=== PATIENT | female | born 1975 | race Caucasian/White ===

== ENCOUNTER → 2021-01-26 10:29 | Outpatient (CLI) | payer OTHER, SELFPAY ==
--- NOTE | ~2021-01-26 | US_ITS ---
EXAMINATION: US abdomen complete EXAM DATE: 01/26/2021 11:24 INDICATION: Unspecified abdominal pain . TECHNIQUE: Multiple grayscale and Doppler images of the complete abdomen were obtained (by a technolo gist who performed the scan) and subsequently reviewed. There is no prior study for comparison. FINDINGS: The abdominal aorta is normal in caliber. Visualized portion IVC is patent. The pancreatic head a nd body are normal in appearance. The pancreatic tail is not visualized. The liver has normal echogenicity and contour. There are no focal liver lesions identified. There is no evidence of intrahepatic biliary duct dilation. Portal venous flow was seen in the hepatopedal , normal direction and has normal Doppler waveform. Common bile duct measures 3 mm, which is normal. The gallbladder wall is normal in thickness, with ex pected amount of distention. No sonographic evidence of pericholecystic fluid. There is cholelithia sis. Technologist performing exam reports patient did not demonstrate sonographic Cheng's sign. P caridad note that this sign is less reliable in patients who have received pain medication. Right kidney: There is normal contour and echogenicity. It measures 11.1 x 4.1 x 5.1 centimeters. There are no focal renal lesions identified. There is no hydronephrosis. Left kidney: There is normal contour and echogenicity. It measures 12.4 x 4.3 x 4.5 centimeters. T here are no focal renal lesions identified. There is no hydronephrosis. The spleen measures 10.4 centimeters and is morphologically normal. IMPRESSION: 1. Cholelithiasis. Reviewed, dictated and finalized at location A. [facility] IMPRESSION: 1. Cholelithiasis.
== END ==
PROVIDERS: PCP Internal Medicine; Visit Provider Physician Assistant Medical
DX: R10.9 Unspecified abdominal pain (principal); K80.20 Calculus of gallbladder without cholecystitis without obstruction
CPT/HCPCS: 76700

== ENCOUNTER 2021-02-25 10:13 | Outpatient (CLI) | payer OTHER, SELFPAY ==
--- NOTE | 2021-02-25 10:30 | ECG_ITS ---
Measurements Intervals [place] Rate: 72 P: 38 GA: 148 QRS: -9 QRSD: 90 T: 25 QT: 347 QTc: 380 Interpretive Statements SINUS RHYTHM VOLTAGE CRITERIA FOR LVH BORDERLINE R WAVE PROGRESSION, ANTERIOR LEADS MINIMAL Q WAVES- HIGH LATERAL LEADS BASELINE ARTIFACT- I, III, AVL, AVF BORDERLINE ECG Electronically Signed On 02-25-2021 16:53:54 TRANSLATOR AND INTERPRETER by Kenny Romero D.O.
[2021-02-25 10:49] LABS: Anion Gap 10 mmol/L (8-16); Blood Urea Nitrogen 8 mg/dL (7-17); Calcium 9.5 mg/dL (8.4-10.2); Carbon Dioxide 24 mmol/L (22-30); Chloride 105 mmol/L (98-107); Estimated Glomerular Filt Rate 60; Glucose 125 mg/dL (65-110); Potassium 3.6 mmol/L (3.4-5.0); Sodium 139 mmol/L (137-145)
[2021-02-25 10:50] LABS: Alanine Aminotransferase 28 U/L (4-35); Albumin Level 4.4 g/dL (3.5-5.1); Alkaline Phosphatase 65 U/L (38-126); Amylase 74 U/L (30-110); Aspartate Amino Transferase 23 U/L (14-36); Bilirubin,Total 0.6 mg/dL (0.2-1.3); Lipase 114 U/L (23-300)
== END 2021-02-25 10:14 | disposition home or self-care (01) ==
PROVIDERS: Anesthesiology; PCP Internal Medicine; Visit Provider Surgery
DX: K80.10 Calculus of gallbladder with chronic cholecystitis without obstruction (principal); I10 Essential (primary) hypertension; Z79.899 Other long term (current) drug therapy; Z01.818 Encounter for other preprocedural examination; R94.31 Abnormal electrocardiogram [ECG] [EKG]
CPT/HCPCS: 36415; 80048; 80076; 82150; 83690; 86850; 86900; 86901; 93005

== ENCOUNTER 2021-06-20 07:59 | Inpatient (IN) | payer OTHER, SELFPAY ==
--- NOTE | ~2021-06-20 | MR_ITS ---
EXAMINATION: MR MRCP wo/w con/w 3D wo ind DATE: 06/21/2021 12:19 INDICATION: Abnormal liver function tests. Pancreatitis. TECHNIQUE: Magnetic resonance imaging (MRI) of the abdomen was performed without intravenous contrast . Sequences included coronal T2-weighted FS FSE, coronal T2-weighted FSE, axial T1-weighted LAVA, cor onal FS FIESTA, axial dual-echo T1-weighted SPGR, coronal lava-FLEX, sagittal T2-weighted FSE, axial T2-weighted FSE, and axial DWI. Thick-slab T2-weighted FSE images were obtained for magnetic resonanc e cholangiopancreatography (MRCP). Maximum intensity projection 3-D reconstructions of the volumetric data were created by the technologist. Postcontrast sequences included coronal LAVA-flex and time co urse of axial T1-weighted LAVA. COMPARISON: CT abdomen and pelvis 06/20/2021 FINDINGS: ABDOMEN MRI: The liver is normal. The gallbladder is normal in size and contains gallstones. Gallblad ruth wall thickening is noted. There is edema around the pancreas, consistent with acute interstitial pancreatitis. The spleen, adrenal glands, and kidneys are normal. There are no dilated loops of bowel . There are no pathologically enlarged lymph nodes. There is no free intraperitoneal fluid. ABDOMEN MRCP: The common duct is normal in caliber and measures 6 mm. No choledocholithiasis. IMPRESSION: 1. Cholelithiasis. Gallbladder wall thickening may be from interstitial edema. 2. No choledocholithiasis. 3. Acute interstitial pancreatitis. Reviewed, dictated and finalized at location B.
--- NOTE | ~2021-06-20 | CT_ITS ---
EXAMINATION: CT abdomen pelvis w con DATE: 06/20/2021 10:25 INDICATION: Right abdominal pain. Nausea. TECHNIQUE: Computed tomography (CT) of the abdomen and pelvis was performed with 100 mL Omnipaque 350 intravenous contrast. Automated exposure control and iterative reconstruction technique were employe d. The dose-length product was 1210.21 mGy-cm. COMPARISON: CT abdomen and pelvis 10/22/2015 FINDINGS: The visualized portions of the lung bases demonstrated mild atelectasis. No pleural effusio n. The heart size is normal. No pericardial effusion. The liver is normal. The gallbladder is normal in size. The spleen is normal. There is fat stranding around the pancreas, consistent with acute inte rstitial pancreatitis. The adrenal glands and kidneys are normal. There is diverticulosis of the colo n without evidence of diverticulitis. There are no dilated loops of bowel. The appendix is normal. Th ere are no pathologically enlarged lymph nodes. There is no free intraperitoneal fluid. There is mild thoracolumbar spondylosis. IMPRESSION: 1. Acute interstitial pericarditis. Reviewed, dictated and finalized at location A.
[2021-06-20 08:02] VITALS: BP 127/83; PULSE 65; RESP 18; TEMP 36.5; O2SAT 100
[2021-06-20 08:25] LABS: Basophils Percent Auto 0.3 % (0.2-1.2); Eosinophils Percent Auto 0.1 % (0-4.4); Hematocrit 40.2 % (37.0-47.0); Hemoglobin 13.9 g/dL (12.0-15.0); Immature Granulocyte Absolute 0.03 K/mm3 (0.00-0.031); Immature Granulocyte Percent A 0.4 % (0-0.5); Lymphocytes Absolute Auto 1.07 K/mm3 (0.9-3.2); Lymphocytes Percent Auto 13.4 % (18.3-44.2); Mean Corpuscular HGB Conc 34.6 g/dl (32-36); Mean Corpuscular Hemoglobin 33.5 pg (26-34); Mean Corpuscular Volume 96.9 fl (80-100); Mean Platelet Volume 9.8 fl (7.4-10.4); Monocytes Absolute Auto 0.6 K/mm3 (0.1-0.6); Monocytes Percent Auto 7.5 % (2.6-8.5); Neutrophils Absolute Auto 6.2 K/mm3 (1.3-6.7); Neutrophils Percent Auto 78.3 % (45.5-73.1); Platelet Count Result 239 k/mm3 (150-375); Red Blood Count 4.15 M/mm3 (4.2-5.4); Red Cell Distribution Width 11.9 % (11.5-14.5)
--- NOTE | 2021-06-20 08:33 | ED.ABDPAIN ---
HPI - Abdominal Pain General Chief Complaint: Abdominal Pain Stated Complaint: abdominal pain Time Seen by Provider: 06/20/21 08:33 Source: patient and family Mode of arrival: ambulatory Limitations: no limitations History of Present Illness HPI narrative: Patient is 46 years old white female, history of gallbladder pathology with intermittent right upper quadrant pain associated with nausea. Scheduled for surgery by Dr. Carolina in 5 days. The pain started last night at 11 PM, 10 out of 10, associated with nausea. Denies any fever. Radiating to right scapula Related Data Home Medications Medication Instructions Recorded Confirmed cholecalciferol (vitamin D3) 125 mcg PO DAILY 02/24/21 06/16/21 [Vitamin D3] dicyclomine [Bentyl] 20 mg PO QID 02/24/21 06/16/21 esomeprazole magnesium [Nexium] 20 mg PO BID 02/24/21 06/16/21 losartan-hydrochlorothiazide 1 tablet PO DAILY 02/24/21 06/16/21 multivitamin 1 tablet PO DAILY 02/24/21 06/16/21 Allergies Allergy/AdvReac Type Severity Reaction Status Date / Time EGG WHITE Allergy Intermediate HAY FEVER Uncoded 06/20/21 08:10 SYMPTOMS ACTAFED Allergy Unknown Other Uncoded 06/20/21 08:10 Review of Systems Review of Systems: CONSTITUTIONAL: Denies fever, chills, or sweats. EYES: Denies visual changes, redness, or discharge. ENT: Denies rhinorrhea, congestion, sore throat, or otalgia. CARDIOVASCULAR: Denies chest pain, palpitations, or edema. RESPIRATORY: Denies cough or dyspnea. GASTROINTESTINAL: Denies abdominal pain, nausea, vomiting, or diarrhea. GENITOURINARY: Denies dysuria or hematuria. SKIN: Denies rash or itching. MUSCULOSKELETAL: Denies back pain, joint pain, or myalgia. NEUROLOGIC: Denies headache, numbness, or weakness. PSYCHIATRIC: Denies anxiety or depression. [facility] Past Medical History Medical History Anxiety Gallbladder disorder GERD (gastroesophageal reflux disease) Hypertension PVC's (premature ventricular contractions) Surgical History Surgical History H/O rhinoplasty Family History Family History Mother Family history of thyroid disease Grandparent Family history of cardiovascular disease Family history of lung cancer Family history of malignant neoplasm of uterus Other Diabetes mellitus Family history of arthritis Family history of heart disease in male family member before age 55 Family history of malignant neoplasm Hypertension Social History Social History Smoking status: Never smoker Alcohol intake: former Alcohol use details: 1 year ago Substance use: never Substance use type: does not use Spiritual care concerns: No Exam Narrative: General appearance: Well-developed, well-nourished Skin: Normal color Head: Normocephalic, nontraumatic Eyes: Clear conjunctiva ENT: Oropharynx normal, ears normal, nose normal Neck: Supple, nontender Chest and respiratory: Airway patent, no respiratory distress, no accessory muscle use Heart: Regular rate/rhythm Abdomen: Soft, mild to moderate tenderness right upper quadrant, no organomegaly, quiet bowel sounds Vascular: Normal peripheral pulses, normal capillary refill. Musculoskeletal: Normal range of motion, nontender back Neurologic: Alert and oriented ?3, [employer] is normal as tested, no gross motor deficit Course Course Emergency Course: Stable, improving Consultations Consultation #1: Dr. Aragon Date: 06/20/21 Time: 11:12 Vital Signs Vital signs: Vital Signs Temperature 36.5 C
[2021-06-20 08:44] LABS: Alanine Aminotransferase 87 U/L (4-35); Albumin Level 4.2 g/dL (3.5-5.1); Alkaline Phosphatase 104 U/L (38-126); Anion Gap 7 mmol/L (8-16); Aspartate Amino Transferase 374 U/L (14-36); Bilirubin,Total 1.9 mg/dL (0.2-1.3); Blood Urea Nitrogen 9 mg/dL (7-17); Calcium 8.9 mg/dL (8.4-10.2); Carbon Dioxide 26 mmol/L (22-30); Chloride 103 mmol/L (98-107); Estimated CRCL calculation 86 ml/min; Estimated Glomerular Filt Rate > 60; Glucose 120 mg/dL (65-110); Sodium 136 mmol/L (137-145)
[2021-06-20] MEDS: SODIUM CHLORIDE 0.9% IV 1,000 ML 999 ML IV CONT ×2 (08:57→10:02)
[2021-06-20] MEDS: MORPHINE SULFATE (*CRX) 4 MG/ML INJ IV PUSH (08:58)
[2021-06-20] MEDS: ONDANSETRON INJ 4 MG/2 ML VIAL IV PUSH ×2 (08:58→18:32)
--- NOTE | 2021-06-20 08:58 | PC.NURSE ---
pt unable to provide urine sample at this time.
[2021-06-20 09:32] LABS: Lipase 38587 U/L (23-300)
[2021-06-20 10:04] VITALS: BP 120/81; PULSE 67; RESP 17; O2SAT 100
[2021-06-20 10:16] LABS: Appearance Urine Cloudy (Clear); Bilirubin Urine Negative (Negative); Blood Urine Trace-lysed (Negative); Color Urine Yellow (Yellow); Glucose Urine UA Negative (Negative); Ketones Urine Negative (Negative); Leukocyte Esterase Ur 2+ LEU/UL (Negative); Nitrate Urine Negative (Negative); Protein Urine Negative (Negative); Specific Grav Ur 1.015 (1.001-1.035); pH Urine 7.5 (5.0-9.0)
[2021-06-20 10:19] LABS: Add Urine Microscopic? YES
[2021-06-20 10:22] LABS: Bacteria Urine Trace /hpf; Mucus Urine Rare /lpf; Squamous Epithelial Cell Urine Many /hpf (Few); WBC Urine >75 /hpf
[2021-06-20 12:04] VITALS: BP 126/82; PULSE 74; RESP 16; O2SAT 100
--- NOTE | 2021-06-20 13:28 | PC.NURSE ---
report received from Monisha AWAN, reviewed plan of care
[2021-06-20 13:30] VITALS: BP 128/78; PULSE 78; RESP 16; O2SAT 99
--- NOTE | 2021-06-20 13:46 | ADMGEN ---
This patient, Radha Rush, was admitted to Medical Room 341-01. Patient/family oriented to hospital policies and general routines including ID bracelet, bed and alarms, visiting hours, pain management, procedures, bathroom and other care routines, personal items, smoking policy, room service/diet, and visiting hours. Information on how to activate the Rapid Response Team has been discussed. Patient/Family are encouraged to report perceived risks to care and to ask questions if they do not understand what they are told or what they should do.
[2021-06-20] MEDS: LACTATED RINGERS 1,000 ML 150 ML IV CONT ×2 (14:03→22:35)
--- NOTE | 2021-06-20 15:47 | PM.IMHP ---
H&P: HPI History of Present Illness Date/Time: 06/20/21 15:47 this is a 46-year-old female that presented to our emergency department with complaints generalized abdominal pain. Patient has a past medical history anxiety, gallbladder disorder GERD hypertension and PVCs. According to patient she have an appointment with GI on for diagnostic testing gallbladder. Patient notes that she started to experience generalized abdominal pain last night at 11:00 a.m. per patient she just assumed it was her gallbladder. She also notes that she experienced nausea with her abdominal pain. She notes that she took Tylenol and Bentyl for her pain with no relief. Vital signs 128/78, 78, 16, 99% on room air, PVCs 8.0, hemoglobin 13.9, hematocrit 40.2, platelets 236, sodium 136, potassium 4.0, BUN 9, creatinine 0.70, glucose 120, total bili 0.9, AST 374, ALT 87, lipase 75470, UA positive for blood, leukocyte Estrace, and bacteria. CT of the abdomen indicates acute pancreatitis EKG sinus rhythm with a heart rate of 72. Patient being admitted for pancreatitis Dr. Aragon surgeon consulted. Patient continues to abdominal pain with nausea. Denies any shortness of breath, diarrhea, dizziness, lightheadedness, palpitations, or chest pain, Chief Complaint: Abdominal pain with nausea Review of Systems Review of Systems: All systems reviewed & are unremarkable except as noted in HPI and below PMFSH Past Medical History Medical History Anxiety Gallbladder disorder GERD (gastroesophageal reflux disease) Hypertension PVC's (premature ventricular contractions) Surgical History Surgical History H/O rhinoplasty Family History Family History Mother Family history of thyroid disease Grandparent Family history of cardiovascular disease Family history of lung cancer Family history of malignant neoplasm of uterus Other Diabetes mellitus Family history of arthritis Family history of heart disease in male family member before age 55 Family history of malignant neoplasm Hypertension Social History Social History Smoking status: Never smoker Alcohol intake: never Alcohol use details: 1 year ago Substance use: never Substance use type: does not use Spiritual care concerns: No Meds Home Medications and Allergies Home Medications Medication Instructions Recorded Confirmed Type cholecalciferol (vitamin D3) 125 mcg PO DAILY 02/24/21 06/20/21 History [Vitamin D3] dicyclomine [Bentyl] 20 mg PO QID 02/24/21 06/20/21 History esomeprazole magnesium [Nexium] 20 mg PO BID 02/24/21 06/20/21 History losartan-hydrochlorothiazide 1 tablet PO DAILY 02/24/21 06/20/21 History multivitamin 1 tablet PO DAILY 02/24/21 06/20/21 History Allergies Allergy/AdvReac Type Severity Reaction Status Date / Time EGG WHITE Allergy Intermediate HAY FEVER Uncoded 06/20/21 13:53 SYMPTOMS ACTAFED Allergy Unknown Other Uncoded 06/20/21 13:53 Vital Signs Vital Signs - 24 hr 06/20/21 08:02 06/20/21 10:04 06/20/21 12:04 Temperature 97.7 F Pulse Rate 65 67 74 Respiratory Rate 18 17 16 Blood Pressure 127/83 120/81 126/82 Pulse Oximetry 100 100 100 06/20/21 13:30 Temperature Pulse Rate 78 Respiratory Rate 16 Blood Pressure 128/78 Pulse Oximetry 99 Exam Narrative: General: Pleasant, no obvious distress noted obese HEENT: PERRLA, Mucous Membranes Moist and [place], Nares Patent, Sclera Clear Neck: JVD, Supple Pulmonary: Clear to Auscultation, Normal Air Movement Cardiovascular: No Murmurs, Gallops, or Rubs, Regular Rhythm, Regular Rate Abdominal: Abdomen Soft, Non-Distended, Normal Bowel Sounds abdominal tenderness to the lower quads and left upper quad Extremities: Normal Pulses Integumentary: No Abnormalities
[2021-06-20 16:00] VITALS: BP 126/75; PULSE 69; RESP 18; TEMP 38.1; O2SAT 100
[2021-06-20] MEDS: PANTOPRAZOLE SODIUM IV 40 MG VIAL IV PUSH (16:25)
--- NOTE | 2021-06-20 17:22 | PM.CNGS ---
Assessment and Plan Assessment and plan (1) Acute pancreatitis: Onset Date: ~06/19/21 Qualifiers: Acute pancreatitis complication: unspecified Pancreatitis type: unspecified pancreatitis type Qualified Code(s): K85.90 - Acute pancreatitis without necrosis or infection, unspecified Code(s): K85.90 - Acute pancreatitis without necrosis or infection, unspecified Status: Acute Assessment and Plan: The patient's lipase is significantly elevated and there is stranding on her pancreas by CT. Will proceed with bowel rest, fluid rehydration, and repeat labs tomorrow. Will ask Medicine to hold any medication containing hydrochlorothiazide which is another possibility for stimulation of the pancreas as a drug side effect. Will also tomorrow morning check a lipid profile since elevated lipids can contribute to pancreatitis separate from gallstones. If her bilirubin goes up rather than down may need to consider MRCP tomorrow to rule out choledocholithiasis. (2) BMI 39.0-39.9,adult: Onset Date: Unknown Code(s): Z68.39 - Body mass index [BMI] 39.0-39.9, adult Status: Acute Assessment and Plan: Patient states she has been following low-fat diet that we recommended when she found out she had gallstones. She has lost a small amount of weight since February and during 2020 lost about 40 lb. Encouraged her to continue the low-fat diet even after this event and her surgical intervention. (3) Chronic cholecystitis with calculus: Onset Date: ~02/2021 Code(s): K80.10 - Calculus of gallbladder with chronic cholecystitis without obstruction Status: Acute Assessment and Plan: Patient has known that she has had gallstones since February of last year. She was actually scheduled electively to have a laparoscopic cholecystectomy this coming with Dr. Carolina. For now we will await and see how she her pancreas behaves as we try to settle it. Will also check MRCP if her bilirubin goes up rather than comes down. History of Present Illness Consult details Consult date: 06/20/21 Reason for consult: abdominal pain ( pancreatitis with gallstones) Requesting physician: Steh Aragon, [employer] Narrative: The patient is a is a 46-year-old white, obese female that presented to the [facility] emergency department with complaints generalized abdominal pain. she is well known to our office and that she has seen Dr. Carolina in the past for known gallstones. She was seen in February here at the hospital and then as an outpatient and elective surgical intervention is planned for later this week. Patient has a past medical history anxiety, gallbladder disorder, GERD, hypertension, and PVCs. She has had no previous abdominal surgeries Patient notes that she started to experience generalized abdominal pain last night (06/19) at 11:00 a.m. per patient she just assumed it was her gallbladder. She states that she had grilled chicken, salad and 1 pastry with some butter on it. She also notes that she experienced nausea with her abdominal pain. She notes that she took Tylenol and Bentyl for her pain with no relief. She knows that since February when she was last seen by our office she has had for 5 similar episodes but they would lasted only 20-60 minutes and then resolve. In the ED Vital signs 128/78, 78, 16,and her glucose [id number], total bili 1.9, AST 374, ALT 87, lipase 25039, UA positive for blood, leukocyte Estrace, and bacteria. CT of the abdomen indicates acute pancreatitis no mention of common bile duct dilation noted. EKG sinus rhythm with a heart rate of 72. Patient being admitted for pancreatitis. Patient continues to abdominal pain with some nausea. Denies any shortness of breath, diarrhea, dizziness, lightheadedness, palpitations, or chest pain. Review of Systems Review of Systems: All systems reviewed & are unremarkable except as noted in HPI and below (HPI) Constitut
[2021-06-20] MEDS: HYDROmorphone HCL INJ (*CRX) 1 MG/ML SYR 0.5 MG IV PUSH (18:15)
[2021-06-20 20:39] VITALS: BP 120/78; PULSE 63; RESP 16; TEMP 36.6; O2SAT 96
[2021-06-20 20:42] VITALS: BMI 39.9
[2021-06-21] MEDS: LACTATED RINGERS 1,000 ML 150 ML IV CONT ×3 (05:12→20:50)
[2021-06-21 06:00] LABS: Basophils Percent Auto 0.3 % (0.2-1.2); Eosinophils Absolute Auto 0.1 K/mm3 (0-0.3); Eosinophils Percent Auto 1.3 % (0-4.4); Hematocrit 35.5 % (37.0-47.0); Hemoglobin 12.2 g/dL (12.0-15.0); Immature Granulocyte Absolute 0.02 K/mm3 (0.00-0.031); Immature Granulocyte Percent A 0.3 % (0-0.5); Lymphocytes Absolute Auto 1.63 K/mm3 (0.9-3.2); Mean Corpuscular HGB Conc 34.4 g/dl (32-36); Mean Corpuscular Hemoglobin 33.7 pg (26-34); Mean Corpuscular Volume 98.1 fl (80-100); Mean Platelet Volume 10.4 fl (7.4-10.4); Monocytes Absolute Auto 0.6 K/mm3 (0.1-0.6); Monocytes Percent Auto 10.1 % (2.6-8.5); Neutrophils Absolute Auto 3.9 K/mm3 (1.3-6.7); Platelet Count Result 198 k/mm3 (150-375); Red Blood Count 3.62 M/mm3 (4.2-5.4); Red Cell Distribution Width 12.1 % (11.5-14.5); White Blood Count 6.3 K/mm3 (4.5-10.0)
[2021-06-21 06:17] VITALS: BP 112/76; PULSE 81; RESP 16; TEMP 36.2; O2SAT 99
[2021-06-21 06:19] LABS: Alanine Aminotransferase 81 U/L (4-35); Alkaline Phosphatase 109 U/L (38-126); Anion Gap 5 mmol/L (8-16); Aspartate Amino Transferase 178 U/L (14-36); Bilirubin,Total 3.4 mg/dL (0.2-1.3); Blood Urea Nitrogen 7 mg/dL (7-17); Calcium 8.2 mg/dL (8.4-10.2); Carbon Dioxide 24 mmol/L (22-30); Chloride 110 mmol/L (98-107); Cholesterol 136 mg/dL (0-200); Estimated CRCL calculation 79 ml/min; Estimated Glomerular Filt Rate > 60; Glucose 92 mg/dL (65-110); HDL Direct 25 mg/dL; Potassium 3.7 mmol/L (3.4-5.0); Sodium 139 mmol/L (137-145); Triglycerides 104 mg/dL (<150)
[2021-06-21 06:24] LABS: LDL Cholesterol Direct 86 mg/dL
[2021-06-21 06:51] LABS: Lipase 5526 U/L (23-300)
[2021-06-21] MEDS: PANTOPRAZOLE SODIUM IV 40 MG VIAL IV PUSH ×2 (08:42→21:43)
[2021-06-21 10:22] VITALS: BP 106/68; PULSE 68; RESP 18; TEMP 36.7; O2SAT 100
[2021-06-21 12:00] VITALS: BMI 39.9
[2021-06-21] MEDS: metroNIDAZOLE 500 MG/ISO 100ML 500 MG/100 ML BAG 100 MG IVPB (12:24)
[2021-06-21 12:51] VITALS: BP 115/76; PULSE 67; RESP 18; TEMP 36.7; O2SAT 100
--- NOTE | 2021-06-21 15:05 | PM.PNGS ---
Progress Note: A&P Assessment and Plan (1) Acute pancreatitis: Onset Date: ~06/19/21 Qualifiers: Acute pancreatitis complication: unspecified Pancreatitis type: unspecified pancreatitis type Qualified Code(s): K85.90 - Acute pancreatitis without necrosis or infection, unspecified Code(s): K85.90 - Acute pancreatitis without necrosis or infection, unspecified Status: Acute Assessment and Plan: Clinically improving. Lipase down to 5,526 today. Lipid profile normal. Would still recommend to continue holding any HCTZ containing medication as a possible etiology for her pancreatitis. Total bilirubin up to 3.4 today. MRCP ordered and showed acute pancreatitis, cholelithiasis, but NO choledocholithiasis. Will repeat labs again tomorrow. Will allow her to try clear liquids today. We will decipher planning of her cholecystectomy depending on how she progresses with the pancreatitis. (2) Chronic cholecystitis with calculus: Onset Date: ~02/2021 Code(s): K80.10 - Calculus of gallbladder with chronic cholecystitis without obstruction Status: Acute Assessment and Plan: Patient with gallstones that she has known about since February last year. She was scheduled to have a laparoscopic cholecystectomy electively this coming with Dr. Carolina. See plan above. (3) BMI 39.0-39.9,adult: Onset Date: Unknown Code(s): Z68.39 - Body mass index [BMI] 39.0-39.9, adult Status: Acute Additional Plan I have discussed the patient's case and plan of care with Dr. Aragon. Requested the patient try to void and asked the nurse to record output. If patient unable to void, I asked the nurse to bladder scan her and call the Hospitalist. Subjective Subjective Date/Time Seen: 06/21/21 15:05 Patient reports: feels better, flatus, no bowel movement and afebrile Interval history: This is a 46 yo female who presented with acute pancreatitis on CT with an associated elevated lipase. This was felt to be biliary. She has been NPO and treated for the pancreatitis. Her total bilirubin went up today and an MRCP was ordered. Chart reviewed and patient was seen and examined this afternoon after her MRCP. She reports feeling well today. She denies any abdominal pain, nausea, vomiting, or bloating. She reports dark urine this morning and not urinating since earlier this morning, she estimates urinating around 6-8am this morning. She felt she emptied her bladder well but does not feel like she needs to void now and hasn't since this morning. Her nurse reports emptying 500 cc of urine from her urine hat in the bathroom this morning. Review of Systems Review of Systems: All systems reviewed & are unremarkable except as noted in HPI and below Constitutional: Constitutional: Denies fever(s) Exam Const: General: no acute distress and awake Orientation/consciousness: patient oriented x3 GI: Inspection: non-distended and obesity GI Palp: Yes Soft to palpation, Yes Tenderness to palpation present (GI) (very mild tenderness, reportedly sore in the epigastric and LUQ, improved), No Guarding due to palpation present (GI) and No Rebound tenderness present Auscultation: normal bowel sounds Skin: General skin exam: normal color and no jaundice Neuro: General: moves all extremities and no focal motor deficits Psych: Insight: Good insight present (Psych) Judgement: Good judgement present (Psych) Objective Data Vital Signs Vital Signs: Vital Signs - 24 hr 06/20/21 16:00 06/20/21 20:39 06/21/21 06:17 Temperature 100.6 F H 98 F 97.2 F L Pulse Rate 69 63 81 Respiratory Rate 18 16 16 Blood Pressure 126/75 120/78 112/76 Pulse Oximetry 100 96 99 06/21/21 10:22 06/21/21 12:51 Temperature 98.0 F 98.0 F Pulse Rate 68 67 Respiratory Rate 18 18 Blood Pressure 106/68 115/76 Pulse Oximetry 100 100 Intake/Output Intake/Output: Intake & Output 06/18/21 06/19/21 06/20/21 06/21/21 23:59 23:59 23
--- NOTE | 2021-06-21 15:59 | PM.IMPN ---
Progress Note: A&P Assessment and Plan (1) Acute pancreatitis: Onset Date: ~06/19/21 Qualifiers: Acute pancreatitis complication: unspecified Pancreatitis type: unspecified pancreatitis type Qualified Code(s): K85.90 - Acute pancreatitis without necrosis or infection, unspecified Code(s): K85.90 - Acute pancreatitis without necrosis or infection, unspecified Status: Acute (2) Chronic cholecystitis with calculus: Onset Date: ~02/2021 Code(s): K80.10 - Calculus of gallbladder with chronic cholecystitis without obstruction Status: Acute (3) Elevated liver enzymes: Code(s): R74.8 - Abnormal levels of other serum enzymes Status: Acute Additional Plan 46-year-old female that presented to our emergency department with complaints generalized abdominal pain. Found to have acute pancreatitis (1) Acute pancreatitis: Improving pain, trending down lipase Appreciate Surgery help Started on clear liquid diet (2) Chronic cholecystitis with calculus: Appreciate surgery help As per surgery We will decipher planning of her cholecystectomy depending on how she progresses with the pancreatitis. (3) UTI: Urine culture negative Stop Abx (4)DVT ppx: Hep SQ (5)Code:Full (6)Dispo:pending improvement Time Spent With Patient Time with patient: 15 - 25 minutes Subjective Date/time seen: 06/21/21 15:59 no abdominal pain at the moment Review of Systems Review of Systems: All systems reviewed & are unremarkable except as noted in HPI and below Constitutional: Constitutional: Reports no additional constitutional complaints Eyes: Eyes: Reports no additional eye complaints ENT: Reports system reviewed and no additional complaints, except as documented Cardiovascular: Cardiovascular: Reports no additional cardiovascular complaints Respiratory: Respiratory: Reports no additional respiratory complaints Gastrointestinal: Gastrointestinal: Reports no additional gastrointestinal complaints Musculoskeletal: Musculoskeletal: Reports no additional musculoskeletal complaints Integumentary/Breasts: Skin/Breast: Reports system reviewed and no additional complaints, except as docu Neurologic: Reports system reviewed and no additional complaints, except as documented Exam Const: General: comfortable and no acute distress HENMT: Mouth: Yes moist mucous membranes Eyes: Pupils: Equal, round and reactive pupils present Neck: Neck: supple Resp: Auscultation: clear to auscultation bilaterally Cardio: Rate: regular rate Rhythm: regular rhythm GI: GI Palp: Yes Soft to palpation Auscultation: normal bowel sounds Neuro: Cognition (Neuro): normal cognition Psych: Mental Status: mental status grossly normal Objective Data Vital Signs Vital Signs: Vital Signs - 24 hr 06/20/21 16:00 06/20/21 20:39 06/21/21 06:17 Temperature 100.6 F H 98 F 97.2 F L Pulse Rate 69 63 81 Respiratory Rate 18 16 16 Blood Pressure 126/75 120/78 112/76 Pulse Oximetry 100 96 99 06/21/21 10:22 06/21/21 12:51 Temperature 98.0 F 98.0 F Pulse Rate 68 67 Respiratory Rate 18 18 Blood Pressure 106/68 115/76 Pulse Oximetry 100 100 Intake/Output Intake/Output: Intake & Output 06/18/21 06/19/21 06/20/21 06/21/21 23:59 23:59 23:59 23:59 Intake Total 3150 2100 Output Total 600 1550 Balance 2550 550 Meds/Results Medications: Active Medications Generic Name Dose Route Start Last Admin Trade Name Freq PRN Reason Stop Dose Admin Hydromorphone HCl 1 mg 06/20/21 12:45 Hydromorphone Hcl Inj (*Crx) 1 Mg/Ml Syr IV PUSH Q3H PRN Pain Rated 7-10 Hydromorphone HCl 0.5 mg 06/20/21 12:44 06/20/21 18:15 Hydromorphone Hcl Inj (*Crx) 1 Mg/Ml Syr IV PUSH 0.5 mg Q3H PRN Administration Pain Rated 4-6 Lactated Ringer's 1,000 mls @ 150 mls/hr 06/20/21 11:10 06/21/21 12:29 Lr - Lactated Ringers Iv IV CONT 150 mls/hr .Q6H40M [place] Administration
[2021-06-21 16:00] VITALS: BP 120/71; PULSE 78; RESP 18; TEMP 36.6; O2SAT 100
[2021-06-21 20:00] VITALS: BP 126/59; PULSE 84; RESP 18; TEMP 37.4; O2SAT 100
[2021-06-21] MEDS: HEPARIN SODIUM 5,000 UNITS/ML VIAL 5000 UNITS SUB-Q (21:42)
[2021-06-22] VITALS (15 sets, daily range): BP systolic 114–141; BP diastolic 63–91; PULSE 57–94; RESP 12–118; TEMP 36.3–37.1; O2SAT 93–100
[2021-06-22] MEDS: LACTATED RINGERS 1,000 ML 150 ML IV CONT (03:29)
[2021-06-22 05:53] LABS: Basophils Percent Auto 0.5 % (0.2-1.2); Eosinophils Absolute Auto 0.2 K/mm3 (0-0.3); Eosinophils Percent Auto 2.8 % (0-4.4); Hematocrit 34.9 % (37.0-47.0); Hemoglobin 11.6 g/dL (12.0-15.0); Immature Granulocyte Absolute 0.02 K/mm3 (0.00-0.031); Immature Granulocyte Percent A 0.3 % (0-0.5); Mean Corpuscular HGB Conc 33.2 g/dl (32-36); Mean Corpuscular Hemoglobin 33.4 pg (26-34); Mean Corpuscular Volume 100.6 fl (80-100); Monocytes Absolute Auto 0.4 K/mm3 (0.1-0.6); Monocytes Percent Auto 7.1 % (2.6-8.5); Neutrophils Absolute Auto 3.2 K/mm3 (1.3-6.7); Neutrophils Percent Auto 56.3 % (45.5-73.1); Platelet Count Result 180 k/mm3 (150-375); Red Blood Count 3.47 M/mm3 (4.2-5.4); White Blood Count 5.8 K/mm3 (4.5-10.0)
[2021-06-22 06:03] LABS: Alanine Aminotransferase 54 U/L (4-35); Albumin Level 3.2 g/dL (3.5-5.1); Alkaline Phosphatase 100 U/L (38-126); Anion Gap 2 mmol/L (8-16); Aspartate Amino Transferase 63 U/L (14-36); Blood Urea Nitrogen 7 mg/dL (7-17); Calcium 8.4 mg/dL (8.4-10.2); Carbon Dioxide 26 mmol/L (22-30); Chloride 108 mmol/L (98-107); Estimated CRCL calculation 89 ml/min; Estimated Glomerular Filt Rate > 60; Glucose 93 mg/dL (65-110); Lipase 722 U/L (23-300); Sodium 136 mmol/L (137-145)
[2021-06-22] MEDS: PANTOPRAZOLE SODIUM IV 40 MG VIAL IV PUSH ×2 (08:24→20:54)
[2021-06-22] MEDS: ALPRAZolam (*CRX) 0.125 MG TABLET PO (10:36)
[2021-06-22] MEDS: LACTATED RINGERS 1,000 ML 30 ML IV CONT ×2 (12:10→15:05)
[2021-06-22] MEDS: ACETAMINOPHEN 500 MG TABLET 1000 MG PO (12:20)
--- NOTE | 2021-06-22 12:21 | PM.IMPN ---
Progress Note: A&P Assessment and Plan (1) Acute pancreatitis: Onset Date: ~06/19/21 Qualifiers: Acute pancreatitis complication: unspecified Pancreatitis type: unspecified pancreatitis type Qualified Code(s): K85.90 - Acute pancreatitis without necrosis or infection, unspecified Code(s): K85.90 - Acute pancreatitis without necrosis or infection, unspecified Status: Acute Assessment and Plan: Gallstones noted but no stone noted in the common bile duct. Plan to perform cholecystectomy. Currently pain is controlled. (2) Chronic cholecystitis with calculus: Onset Date: ~02/2021 Code(s): K80.10 - Calculus of gallbladder with chronic cholecystitis without obstruction Status: Acute Assessment and Plan: Plan laparoscopic cholecystectomy (3) Elevated liver enzymes: Code(s): R74.8 - Abnormal levels of other serum enzymes Status: Acute Assessment and Plan: Monitor labs Additional Plan Likely no urinary tract infection. Patient otherwise is not having symptoms and cultures were negative. No antibiotics needed at this time. Subjective Date/time seen: 06/22/21 12:21 Feeling better, pain control. No urinary symptoms noted. Exam Narrative: General: Pleasant, no obvious distress noted obese HEENT: PERRLA, Mucous Membranes Moist and [place], Nares Patent, Sclera Clear Neck: JVD, Supple Pulmonary: Clear to Auscultation, Normal Air Movement Cardiovascular: No Murmurs, Gallops, or Rubs, Regular Rhythm, Regular Rate Abdominal: Abdomen Soft, Non-Distended, Normal Bowel Sounds abdominal tenderness to the lower quads and left upper quad Extremities: Normal Pulses Integumentary: No Abnormalities Neurological: Normal Gait, Normal Speech Psychological: Mental Status NL, Mood NL Const: General: comfortable and no acute distress HENMT: Mouth: Yes moist mucous membranes Eyes: Pupils: Equal, round and reactive pupils present Neck: Neck: supple Resp: Auscultation: clear to auscultation bilaterally Cardio: Rate: regular rate Rhythm: regular rhythm GI: Auscultation: normal bowel sounds Neuro: Cranial nerves: Yes Equal, round and reactive pupils present Cognition (Neuro): normal cognition Psych: Mental Status: mental status grossly normal Objective Data Vital Signs Vital Signs: Vital Signs - 24 hr 06/21/21 12:51 06/21/21 16:00 06/21/21 20:00 Temperature 98.0 F 97.9 F 99.3 F Pulse Rate 67 78 84 Respiratory Rate 18 18 18 Blood Pressure 115/76 120/71 126/59 L Pulse Oximetry 100 100 100 06/22/21 06:12 Temperature 98.7 F Pulse Rate 80 Respiratory Rate 16 Blood Pressure 141/69 H Pulse Oximetry 98 Intake/Output Intake/Output: Intake & Output 06/19/21 06/20/21 06/21/21 06/22/21 23:59 23:59 23:59 23:59 Intake Total 3150 3460 1200 Output Total 600 3150 550 Balance 2550 310 650 Meds/Results Medications: Active Medications Generic Name Dose Route Start Last Admin Trade Name Freq PRN Reason Stop Dose Admin Heparin Sodium (Porcine) 5,000 units 06/21/21 21:00 06/22/21 08:25 Heparin Sodium 5,000 Units/Ml Vial SUB-Q Not Given Q12HR [place] Hydromorphone HCl 1 mg 06/20/21 12:45 Hydromorphone Hcl Inj (*Crx) 1 Mg/Ml Syr IV PUSH Q3H PRN Pain Rated 7-10 Hydromorphone HCl 0.5 mg 06/20/21 12:44 06/20/21 18:15 Hydromorphone Hcl Inj (*Crx) 1 Mg/Ml Syr IV PUSH 0.5 mg Q3H PRN Administration Pain Rated 4-6 Lactated Ringer's 1,000 mls @ 150 mls/hr 06/20/21 11:10 06/22/21 04:29 Lr - Lactated Ringers Iv IV CONT Not Given .Q6H40M [place] Ondansetron HCl 4 mg 06/20/21 11:06 06/20/21 18:32 Ondansetron Inj 4 Mg/2 Ml Vial IV PUSH 4 mg Q4H PRN Administration Nausea Pantoprazole Sodium 40 mg 06/20/21 21:00 06/22/21 08:24 Pantoprazole Sodium Iv 40 Mg Vial IV PUSH 40 mg Q12HR [place] Administration Radiology Results: ITS Impressions Abdomen/Pelvis CT
--- NOTE | 2021-06-22 12:37 | WPDHPUPDATE1 ---
History and Physical Update Update Date/Time: 06/22/21 12:37 History and Physical has been reviewed, including an updated exam of the patient. There are changes in the patient's condition. See recent progress notes. The patient's lipase today is down to less than 1000 but still slightly elevated. MRCP yesterday showed no common bile duct stones and no acute inflammation of the gallbladder. Patient has known chronic cholecystitis with cholelithiasis and wishes to proceed with a laparoscopic cholecystectomy. Risks, benefits, and alternatives have been discussed and questions answered. Patient agrees to proceed with procedure.
--- NOTE | 2021-06-22 12:38 | WPDANESEPPF ---
Anes - Initial Pre Proc Eval Procedure: Operation Date: 06/22/21 13:30 Proposed Procedures p Laparoscopic Cholecystectomy; Possible Open - Humberto Aragon MD Date/Time: 06/22/21 12:38 Surgeon: Hanna Nash MD Pre Op Diagnosis: Acute pancreatitis Patient Data Age: 46 Gender: F Height: 1.52 m Weight: 92.8 kg Last Vital Signs Temp 37.1 C 06/22/21 06:12 Pulse 80 06/22/21 06:12 Resp 16 06/22/21 06:12 BP 141/69 H 06/22/21 06:12 Pulse Ox 98 06/22/21 06:12 Allergies Allergy/AdvReac Type Severity Reaction Status Date / Time EGG WHITE Allergy Intermediate HAY FEVER Uncoded 06/22/21 12:15 SYMPTOMS ACTAFED Allergy Unknown Other Uncoded 06/22/21 12:15 Home Medications Medication Instructions Recorded Confirmed Type cholecalciferol (vitamin D3) 125 mcg PO DAILY 02/24/21 06/20/21 History [Vitamin D3] dicyclomine [Bentyl] 20 mg PO QID 02/24/21 06/20/21 History esomeprazole magnesium [Nexium] 20 mg PO BID 02/24/21 06/20/21 History losartan-hydrochlorothiazide 1 tablet PO DAILY 02/24/21 06/20/21 History multivitamin 1 tablet PO DAILY 02/24/21 06/20/21 History Laboratory Tests 06/22/21 06/22/21 05:44 05:44 WBC 5.8 K/mm3 K/mm3 (4.5-10.0) RBC 3.47 M/mm3 L M/mm3 (4.2-5.4) Hgb 11.6 g/dL L g/dL (12.0-15.0) Hct 34.9 % L % (37.0-47.0) MCV 100.6 fl H fl (80-100) MCH 33.4 pg pg (26-34) MCHC 33.2 g/dl g/dl (32-36) RDW 12.0 % % (11.5-14.5) Plt Count 180 k/mm3 k/mm3 (150-375) MPV 10.0 fl fl (7.4-10.4) Immature Gran % (Auto) 0.3 % % (0-0.5) Neut % (Auto) 56.3 % % (45.5-73.1) Lymph % (Auto) 33.0 % % (18.3-44.2) [place] % (Auto) 7.1 % % (2.6-8.5) Eos % (Auto) 2.8 % % (0-4.4) Baso % (Auto) 0.5 % % (0.2-1.2) Lymph # (Auto) 1.90 K/mm3 K/mm3 (0.9-3.2) [place] # (Auto) 0.4 K/mm3 K/mm3 (0.1-0.6) Eos # (Auto) 0.2 K/mm3 K/mm3 (0-0.3) Baso # (Auto) 0.0 K/mm3 K/mm3 (0.0-0.1) Abs Immat Gran (auto) 0.02 K/mm3 K/mm3 (0.00-0.031) Absolute Neuts (auto) 3.2 K/mm3 K/mm3 (1.3-6.7) Absolute Nucleated RBC 0.0 K/mm3 K/mm3 (0.0-0.012) Nucleated RBC % 0.0 % % (0.0-0.2) Sodium 136 mmol/L L mmol/L (137-145) Potassium 4.0 mmol/L mmol/L (3.4-5.0) Chloride 108 mmol/L H mmol/L (98-107) Carbon Dioxide 26 mmol/L mmol/L (22-30) Anion Gap 2 mmol/L L mmol/L (8-16) BUN 7 mg/dL mg/dL (7-17) Creatinine 0.70 mg/dL mg/dL (0.7-1.0) Estim Creat Clear Calc 89 ml/min ml/min Estimated GFR > 60 (59 - ) Glucose 93 mg/dL mg/dL (65-110) Calcium 8.4 mg/dL mg/dL (8.4-10.2) Total Bilirubin 1.0 mg/dL mg/dL (0.2-1.3) AST 63 U/L H U/L (14-36) ALT 54 U/L H U/L (4-35) Alkaline Phosphatase 100 U/L U/L (38-126) Total Protein 6.0 g/dL L g/dL (6.3-8.2) Albumin 3.2 g/dL L g/dL (3.5-5.1) Lipase 722 U/L H U/L (23-300) Patient hx anesthesia problems: post op nausea/vomiting Family hx anesthesia problems: none Results Review: All pre-operative results and documents have been reviewed as part of the pre-operative evaluation. [facility] Past Medical History Medical History Anxiety Gallbladder disorder GERD (gastroesophageal reflux disease) Hypertension PVC's (premature ventricular contractions) Surgical History Surgical History H/O rhinoplasty Family History Family History Mother Family history of thyroid disease Grandparent Family history of cardiovascular disease Family history of lung cancer Family history of malignant neoplasm of uterus Other Diabetes mellitus Family history of arthritis Family histo
[2021-06-22] MEDS: KETOROLAC 15 MG/ML VIAL (*BKC) IV PUSH (12:55)
[2021-06-22] MEDS: ceFAZolin 2 GM/D5W 50 ML 2 GM/50 ML BAG IVPB (13:05)
[2021-06-22] MEDS: SCOPOLAMINE 1.5 MG PATCH TRANSDERM (13:05)
--- NOTE | 2021-06-22 15:14 | W.PM.PROC2 ---
Procedure Note - Detailed Date of Procedure 06/22/21 Pre-op Diagnosis 1. Chronic cholecystitis with cholelithiasis. 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 She has known gallstones and so this was the most likely cause. Today her lipase was down below 1000. And the patient's pain was resolving. MRCP yesterday showed no stones in the common bile duct therefore, we proceeded with laparoscopic cholecystectomy today. Findings Some edema of the wall of the gallbladder near the cystic duct and during or in its lower half. No other specific intra-abdominal abnormalities. Description of Procedure Procedure Details: Patient was seen preoperatively in the holding area and risks, benefits and alternatives confirmed. Patient was taken to the operating room and general anesthesia was induced. A time out was then preformed with the surgery team confirming patient and site of surgery. The abdomen was prepped and draped in the usual sterile fashion. Incision was made just below the umbilicus. Two stay sutures of O- Vicryl were used to elevate the mid-line fascia beneath the umbilicus and a small incision was made under direct vision. Further careful dissection was required with the S retractors and I believe we entered the abdomen slightly to the right of midline through the posterior rectus sheath. Once we could see some omentum bulging up through the incision I was able to gently dilate the incision and then inserted the sign cannula. We used a long (130 mm) Bruno cannula for this procedure. The peritoneum was entered. The 12 mm Bruno cannula was introduced under direct vision. First under low flow and then under high flow the abdomen was insufflated with carbon dioxide never exceeding a pressure of 14. Three 5 mm trocars were then introduced under direct vision. The following trocars were introduced under direct vision: a mm in the epigastrium and two 5 mm trocars along the right costal margin. There were no significant adhesions to the gallbladder The gall bladder was grasped and the cystic duct and artery were dissected free and I carefully identified a window of safety with only two other structures in the area being the cystic duct and the cystic artery. I then used a 5 mm endo-clip rug inspector to place 2 clips on the patient's side 1 on the gallbladder side on the cystic artery and just 1 clip on the gallbladder side of the cystic duct. A small hole was made in the cystic duct with endoshears and a cholagio-cath introduced. This was held in place with a single 5 mm clip. A cholangiogram was obtained revealing free flow into the cystic duct, common bile duct, common hepatic, right and left hepatic ducts with free flow into the duodenum with no filling defects in the intra nor extrahepatic biliary tree and no dilation. The catheter was removed and the cystic duct was clipped with a 5 mm endoclip-rug inspector placing 2 clips on the patient's side of the cystic duct. The cystic duct was then transected. The cystic artery was also transected at this point. The gall bladder was removed using electrocautery and then removed using a large 10 mm grasper via the umbilical incision. Because the deep nature of the patient's abdominal wall and the difficulty we had entering the abdomen in the use of the long assigned cannula I decided to use the Toi cone and a 1. Vicryl placed with a suture Passer to close the fascia at the umbilicus. This was accomplished by watching with a 5 mm laparoscoped from the upper midline port site. Patient did well with this. The trocars were removed visualizing hemostasis and the remaining gas evacuated. The large trocar site at the umbilicus was closed with . The 2 stay sutures mentioned above on either side of the fa
[2021-06-22] MEDS: fentaNYL CITRATE INJ (*CRX) 100 MCG/2 ML VIAL 25 MCG IV PUSH ×4 (15:31→16:04)
[2021-06-22] MEDS: HYDROmorphone HCL INJ (*CRX) 1 MG/ML SYR IV PUSH (17:56)
[2021-06-22] MEDS: diphenhydrAMINE HCl INJ 50 MG/ML VIAL 25 MG IV PUSH (18:03)
[2021-06-22] MEDS: HEPARIN SODIUM 5,000 UNITS/ML VIAL 5000 UNITS SUB-Q (20:54)
[2021-06-22] MEDS: SENNA/DOCUSATE SODIUM TABLET 2 TAB PO (20:54)
[2021-06-22] MEDS: HYDROcodone/acetaminophen (*CRX) 5-325 MG TABLET 1 TAB PO (22:28)
[2021-06-23] VITALS: BP 115/75; PULSE 56; RESP 16; TEMP 37.1; O2SAT 96
[2021-06-23] MEDS: HYDROcodone/acetaminophen (*CRX) 5-325 MG TABLET 1 TAB PO ×2 (04:25→13:23)
[2021-06-23] MEDS: LACTATED RINGERS 1,000 ML 90 ML IV CONT (04:27)
[2021-06-23 05:28] VITALS: BP 120/68; PULSE 50; RESP 20; TEMP 36.7; O2SAT 100
[2021-06-23 05:42] LABS: Hematocrit 35.2 % (37.0-47.0); Hemoglobin 11.5 g/dL (12.0-15.0); Mean Corpuscular HGB Conc 32.7 g/dl (32-36); Mean Corpuscular Hemoglobin 33.5 pg (26-34); Mean Corpuscular Volume 102.6 fl (80-100); Mean Platelet Volume 10.8 fl (7.4-10.4); Platelet Count Result 161 k/mm3 (150-375); Red Blood Count 3.43 M/mm3 (4.2-5.4); Red Cell Distribution Width 11.9 % (11.5-14.5); White Blood Count 7.7 K/mm3 (4.5-10.0)
[2021-06-23 05:53] LABS: Alanine Aminotransferase 40 U/L (4-35); Albumin Level 3.2 g/dL (3.5-5.1); Alkaline Phosphatase 97 U/L (38-126); Anion Gap 6 mmol/L (8-16); Aspartate Amino Transferase 49 U/L (14-36); Bilirubin,Total 0.7 mg/dL (0.2-1.3); Blood Urea Nitrogen 9 mg/dL (7-17); Calcium 8.2 mg/dL (8.4-10.2); Carbon Dioxide 23 mmol/L (22-30); Chloride 109 mmol/L (98-107); Estimated CRCL calculation 79 ml/min; Estimated Glomerular Filt Rate > 60; Glucose 88 mg/dL (65-110); Lipase 94 U/L (23-300); Potassium 3.9 mmol/L (3.4-5.0); Sodium 138 mmol/L (137-145)
[2021-06-23 08:01] VITALS: O2SAT 95
[2021-06-23] MEDS: HYDROcodone/acetaminophen (*CRX) 7.5-325 MG TABLET 1 TAB PO (08:58)
[2021-06-23] MEDS: HEPARIN SODIUM 5,000 UNITS/ML VIAL 5000 UNITS SUB-Q (08:58)
[2021-06-23] MEDS: PANTOPRAZOLE SODIUM IV 40 MG VIAL IV PUSH (08:58)
--- NOTE | 2021-06-23 09:23 | PM.IMPN ---
Progress Note: A&P Assessment and Plan (1) Acute pancreatitis: Onset Date: ~06/19/21 Qualifiers: Acute pancreatitis complication: unspecified Pancreatitis type: unspecified pancreatitis type Qualified Code(s): K85.90 - Acute pancreatitis without necrosis or infection, unspecified Code(s): K85.90 - Acute pancreatitis without necrosis or infection, unspecified Status: Acute Assessment and Plan: Gallstones noted but no stone noted in the common bile duct on MRCP. Status post cholecystectomy on 06/22/2021. Currently pain is controlled. Continue hydration Diet managed by surgery (2) Chronic cholecystitis with calculus: Onset Date: ~02/2021 Code(s): K80.10 - Calculus of gallbladder with chronic cholecystitis without obstruction Status: Acute Assessment and Plan: laparoscopic cholecystectomy (3) Elevated liver enzymes: Code(s): R74.8 - Abnormal levels of other serum enzymes Status: Acute Assessment and Plan: Monitor labs (4) Hypertension: Qualifiers: Hypertension type: primary hypertension Qualified Code(s): I10 - Essential (primary) hypertension Code(s): I10 - Essential (primary) hypertension Status: Acute Assessment and Plan: P.r.n. hydralazine (5) Abnormal finding on urinalysis: Code(s): R82.90 - Unspecified abnormal findings in urine Status: Acute Assessment and Plan: Currently patient is not on antibiotic asymptomatic urine culture negative will repeat UA Subjective Date/time seen: 06/23/21 09:23 Interval history: 46-year-old female that presented to our emergency department with complaints generalized abdominal pain. Patient has a past medical history anxiety, gallbladder disorder GERD hypertension and PVCs. According to patient she have an appointment with GI on for diagnostic testing gallbladder. Patient notes that she started to experience generalized abdominal pain last night at 11:00 a.m. per patient she just assumed it was her gallbladder. She also notes that she experienced nausea with her abdominal pain in the ER patient was found to have abnormal LFT elevated lipase was diagnosed with calculous cholecystitis acute pancreatitis surgery was consulted MRCP was negative cholecystectomy was done on 06/22/2021 Patient feels weak still complaining of abdominal pain Patient denies fever headache chest pain shortness of breath I am seeing the patient for abdominal pain Exam Narrative: Alert Chest decreased air entry bilateral Abdomen tender no rebound no guarding CVS S1 + S2 Lower extremity edema Objective Data Vital Signs Vital Signs: Vital Signs - 24 hr 06/22/21 15:05 06/22/21 15:20 06/22/21 15:35 Temperature 97.8 F Pulse Rate 94 69 57 L Respiratory Rate 18 16 18 Blood Pressure 140/91 H 137/75 128/73 Pulse Oximetry 100 100 100 06/22/21 15:50 06/22/21 16:05 06/22/21 16:20 Temperature Pulse Rate 58 L 57 L 58 L Respiratory Rate 14 14 14 Blood Pressure 114/68 118/63 128/76 Pulse Oximetry 100 93 93 06/22/21 16:30 06/22/21 16:50 06/22/21 17:05 Temperature 97.4 F L 98.1 F 98.1 F Pulse Rate 66 59 L 61 Respiratory Rate 12 118 H 18 Blood Pressure 127/77 134/81 133/78 Pulse Oximetry 94 98 98 06/22/21 17:10 06/22/21 17:35 06/22/21 18:35 Temperature 98.2 F 98.1 F Pulse Rate 68 65 Respiratory Rate 18 18 Blood Pressure 127/81 127/86 Pulse Oximetry 95 97 98 06/22/21 19:39 06/22/21 20:00 06/23/21 00:00 Temperature 98.4 F 98.7 F Pulse Rate 62 62 56 L Respiratory Rate 20 20 16 Blood Pressure 123/71 115/75 Pulse Oximetry 95 95 96 06/23/21 05:28 06/23/21 08:01 Temperature 98.1 F Pulse Rate 50 L Respiratory Rate 20 Blood Pressure 120/68 Pulse Oximetry 100 95 Intake/Output Intake/Output: Intake & Output 06/20/21 06/21/21 06/22/21 06/23/21 23:59 23:59 23:59 23:59 Intake Total 3150 3460 2450 500 Output Total 600 31
[2021-06-23] MEDS: CHOLECALCIFEROL 1,000 UNITS TABLET 5000 UNITS PO (10:03)
[2021-06-23 11:12] LABS: Appearance Urine Clear (Clear); Bilirubin Urine 1+ (Negative); Blood Urine Negative (Negative); Color Urine Yellow (Yellow); Glucose Urine UA Negative (Negative); Ketones Urine 2+ mg/dL (Negative); Leukocyte Esterase Ur 1+ LEU/UL (Negative); Nitrate Urine Negative (Negative); Protein Urine Negative (Negative); Specific Grav Ur 1.025 (1.001-1.035); Urobilinogen Urine 0.2 mg/dL (<2.0)
[2021-06-23 11:17] LABS: Mucus Urine Rare /lpf; RBC Urine 0-2 /hpf (0-2); Squamous Epithelial Cell Urine Few /hpf (Few); WBC Urine 21-30 /hpf
[2021-06-23 11:37] LABS: Add Urine Microscopic? YES
--- NOTE | 2021-06-23 13:04 | PM.PNGS ---
Progress Note: A&P Assessment and Plan (1) Acute pancreatitis: Onset Date: ~06/19/21 Qualifiers: Acute pancreatitis complication: unspecified Pancreatitis type: unspecified pancreatitis type Qualified Code(s): K85.90 - Acute pancreatitis without necrosis or infection, unspecified Code(s): K85.90 - Acute pancreatitis without necrosis or infection, unspecified Status: Acute Assessment and Plan: Resolving. Lipase normal today. Tolerating a low fat diet. Okay to discharge from our standpoint. Still recommend holding any HCTZ containing medication. (2) Chronic cholecystitis with calculus: Onset Date: ~02/2021 Code(s): K80.10 - Calculus of gallbladder with chronic cholecystitis without obstruction Status: Acute Assessment and Plan: POD#1 lap cholecystectomy. LFTs trending down. Tolerating her diet and pain is well controlled. Okay to discharge, follow-up with Dr. Aragon in 2 weeks, continue low fat diet, discussed all discharge instructions with the patient. (3) BMI 39.0-39.9,adult: Onset Date: Unknown Code(s): Z68.39 - Body mass index [BMI] 39.0-39.9, adult Status: Acute Additional Plan I have discussed the patient's case and plan of care with Dr. Aragon. Subjective Subjective Date/Time Seen: 06/23/21 13:04 Post Op day: 1 (Laparoscopic cholecystectomy) Patient reports: no new complaints, feels better, tolerating a regular diet (low fat), voiding w/o difficulty, flatus, no bowel movement and afebrile Interval history: Patient seen and examined. She reports feeling well today. She has soreness at the incisions but otherwise not pain like she was having prior to surgery. She is tolerating a low fat diet without nausea or vomiting. She is tolerating activity. Review of Systems Review of Systems: All systems reviewed & are unremarkable except as noted in HPI and below Constitutional: Constitutional: Reports as per HPI, Reports no additional constitutional complaints, Denies chills and Denies fever(s) Cardiovascular: Cardiovascular: Reports no additional cardiovascular complaints, Denies chest pain and Denies leg edema Respiratory: Respiratory: Reports no additional respiratory complaints, Denies cough and Denies dyspnea Gastrointestinal: Gastrointestinal: Reports as per HPI and Reports no additional gastrointestinal complaints Neurologic: Reports system reviewed and no additional complaints, except as documented, Denies Abnormal speech present and Denies focal weakness Exam Const: General: comfortable, no acute distress, alert and awake Orientation/consciousness: patient oriented x3 GI: Inspection: non-distended and incision (Abdominal incisions clean and dry, glue intact.) GI Palp: Yes Soft to palpation and Yes Tenderness to palpation present (GI) (incisional) Auscultation: normal bowel sounds Skin: General skin exam: normal color Neuro: General: moves all extremities and no focal motor deficits Extrem: General: no clubbing, cyanosis or edema and no calf tenderness Psych: Mental Status: mental status grossly normal Insight: Good insight present (Psych) Judgement: Good judgement present (Psych) Objective Data Vital Signs Vital Signs: Vital Signs - 24 hr 06/22/21 15:05 06/22/21 15:20 06/22/21 15:35 Temperature 97.8 F Pulse Rate 94 69 57 L Respiratory Rate 18 16 18 Blood Pressure 140/91 H 137/75 128/73 Pulse Oximetry 100 100 100 06/22/21 15:50 06/22/21 16:05 06/22/21 16:20 Temperature Pulse Rate 58 L 57 L 58 L Respiratory Rate 14 14 14 Blood Pressure 114/68 118/63 128/76 Pulse Oximetry 100 93 93 06/22/21 16:30 06/22/21 16:50 06/22/21 17:05 Temperature 97.4 F L 98.1 F 98.1 F Pulse Rate 66 59 L 61 Respiratory Rate 12 118 H 18 Blood Pressure 127/77 134/81 133/78 Pulse Oximetry 94 98 98 06/22/21 17:10 06/22/21 17:35 06/22/21 18:35 Temperature 98.2 F 98.1 F Pulse Rate 68 65 Respiratory Rate 18 18 Blood P
--- NOTE | 2021-06-23 14:01 | PM.DS ---
DS: Admitting Diagnosis Discharge Date 06/23/2021 Admitting Diagnosis Abdominal pain DS: Discharge Diagnosis Discharge Diagnosis (1) Acute pancreatitis: Onset Date: ~06/19/21 Qualifiers: Acute pancreatitis complication: unspecified Pancreatitis type: unspecified pancreatitis type Qualified Code(s): K85.90 - Acute pancreatitis without necrosis or infection, unspecified Code(s): K85.90 - Acute pancreatitis without necrosis or infection, unspecified Status: Acute Assessment and Plan: Gallstones noted but no stone noted in the common bile duct on MRCP. Status post cholecystectomy on 06/22/2021. Currently pain is controlled. Continue hydration Diet managed by surgery Follow-up with surgery as outpatient patient discharged in good condition (2) Chronic cholecystitis with calculus: Onset Date: ~02/2021 Code(s): K80.10 - Calculus of gallbladder with chronic cholecystitis without obstruction Status: Acute Assessment and Plan: laparoscopic cholecystectomy (3) Elevated liver enzymes: Code(s): R74.8 - Abnormal levels of other serum enzymes Status: Acute Assessment and Plan: Repeat CMP in 1 week (4) Hypertension: Qualifiers: Hypertension type: primary hypertension Qualified Code(s): I10 - Essential (primary) hypertension Code(s): I10 - Essential (primary) hypertension Status: Acute Assessment and Plan: P.r.n. hydralazine (5) Abnormal finding on urinalysis: Code(s): R82.90 - Unspecified abnormal findings in urine Status: Acute Assessment and Plan: Currently patient is not on antibiotic asymptomatic urine culture negative will repeat UA DS: Summary Hospital Course Hospital Course: 46-year-old female that presented to our emergency department with complaints generalized abdominal pain. Patient has a past medical history anxiety, gallbladder disorder GERD hypertension and PVCs. According to patient she have an appointment with GI on for diagnostic testing gallbladder. Patient notes that she started to experience generalized abdominal pain last night at 11:00 a.m. per patient she just assumed it was her gallbladder. She also notes that she experienced nausea with her abdominal pain in the ER patient was found to have abnormal LFT elevated lipase was diagnosed with calculous cholecystitis acute pancreatitis surgery was consulted MRCP was negative cholecystectomy was done on 06/22/2021 patient was discharged in good condition follow-up surgery as outpatient in 2 weeks Time Spent with Patient Time attestation: Total time spent providing and/or coordinating discharge services: Exam Narrative: Alert Chest decreased air entry bilateral Abdomen tender no rebound no guarding CVS S1 + S2 Lower extremity edema DS: Data Data Completed and Pending Pending studies at discharge: Pending at discharge 06/22/21 14:30 Surgical [PTH] Routine Labs on day of discharge: Labs from last 24 hours 06/23/21 06/23/21 06/23/21 10:59 05:19 05:19 WBC 7.7 RBC 3.43 L Hgb 11.5 L Hct 35.2 L MCV 102.6 H MCH 33.5 MCHC 32.7 RDW 11.9 Plt Count 161 MPV 10.8 H Sodium 138 Potassium 3.9 Chloride 109 H Carbon Dioxide 23 Anion Gap 6 L BUN 9 Creatinine 0.80 Estim Creat Clear Calc 79 Estimated GFR > 60 Glucose 88 Calcium 8.2 L Total Bilirubin 0.7 AST 49 H ALT 40 H Alkaline Phosphatase 97 Total Protein 6.0 L Albumin 3.2 L Lipase 94 Urine Color Yellow Urine Appearance Clear Urine pH 6.0 Ur Specific [place] 1.025 Urine Protein Negative Urine Glucose (UA) Negative Urine Ketones 2+ H Ur Blood (Man) Negative Urine Nitrate Negative Urine Bilirubin 1+ H Urine Urobilinogen 0.2 Leukocyte Esterase Rfl 1+ H Urine RBC 0-2 Urine WBC 21-30 H Ur Squamous Epith Cells Few Ur
== END 2021-06-23 14:59 | disposition home or self-care (01) | DRG 418 ==
LOC: ANHED 11:13 → ANH3MED 11:39
PROVIDERS: Nurse Practitioner Family; Surgery; Admitting Provider Internal Medicine; Emergency Provider Emergency Medicine; PCP Internal Medicine; Visit Provider Internal Medicine
PROC: 0FT44ZZ Resection of Gallbladder, Percutaneous Endoscopic Approach (ICD-10-PCS; CPT 47562; principal; 2021-06-22 13:30)
DX: K85.10 Biliary acute pancreatitis without necrosis or infection (principal); K80.10 Calculus of gallbladder with chronic cholecystitis without obstruction; Z68.41 Body mass index [BMI] 40.0-44.9, adult; I10 Essential (primary) hypertension; K21.9 Gastro-esophageal reflux disease without esophagitis; F41.9 Anxiety disorder, unspecified; I49.3 Ventricular premature depolarization; R82.998 Other abnormal findings in urine; R74.8 Abnormal levels of other serum enzymes; E66.01 Morbid (severe) obesity due to excess calories
CPT/HCPCS: 36415; 74177; 74183; 76376; 80053; 80061; 81001; 81025; 83690; 85025; 85027; 87086; 88304; 96361; 96374; 96375; 99285; A9270; A9577; C9113; J0131; J0690; J0696; J1100; J1170; J1200; J1644; J1885; J2270; J2405; J2704; J2710; J3010; J7030; J7120; Q9967

== ENCOUNTER 2021-06-25 15:20 | Emergency (ER) | payer OTHER, SELFPAY ==
[2021-06-25] VITALS (15 sets, daily range): BP systolic 130–156; BP diastolic 63–108; PULSE 56–72; RESP 14–20; TEMP 36.7–36.8; O2SAT 98–100
--- NOTE | ~2021-06-25 | CT_ITS ---
EXAMINATION: CTA chest PE protocol DATE: 06/25/2021 19:29 INDICATION: Chest pain, recent cholecystectomy TECHNIQUE: Computed tomography angiography (CTA) of the chest was performed with 100 mL Omnipaque-350 intravenous contrast timed to evaluate the pulmonary arteries. Coronal maximum intensity projection 3D-reconstructions were created by the technologist. The dose-length product (DLP) was 726.85 mGy-cm. Automated exposure control and iterative reconstruction technique were employed. COMPARISON: None. FINDINGS: The pulmonary arteries are well-opacified. No pulmonary embolism is identified. There is a small right pleural effusion. There is dependent atelectasis. No pneumothorax is identified. No patho logically enlarged thoracic lymph nodes are identified. The heart size is normal. There is mild thora cic spondylosis. IMPRESSION: 1. No pulmonary embolus. 2. Small right pleural effusion. 3. Bibasilar atelectasis. Reviewed, dictated and finalized at location F.
--- NOTE | 2021-06-25 15:36 | ECG_ITS ---
Measurements Intervals [place] Rate: 57 P: 42 [place]: 145 QRS: -1 QRSD: 91 T: 17 QT: 378 QTc: 371 Interpretive Statements SINUS BRADYCARDIA MINIMAL VOLTAGE CRITERIA FOR LVH, CONSIDER NORMAL VARIANT BORDERLINE ECG COMPARED TO ECG 02/25/2021 10:35:35 HEART RATE HAS DECREASED Electronically Signed On 06-25-2021 16:21:51 CDT by Silver Dong M.D.
--- NOTE | 2021-06-25 18:04 | ED.SOB ---
HPI - SOB/Dyspnea General Chief Complaint: Shortness of Breath/Dyspnea Stated Complaint: post op diff breathing Time Seen by Provider: 06/25/21 17:31 History of Present Illness HPI Narrative: Patient is a 46-year-old female who presents ER with left-sided chest pain. Woke up with pain. Located beneath the breast. Worse with deep breath. Patient is recently postop from a cholecystectomy. Reports elevated temperature earlier today. Mild cough. No dyspnea. No hemoptysis. No lower extremity swelling or cramping. No history of blood clots. Related Data Home Medications Medication Instructions Recorded Confirmed cholecalciferol (vitamin D3) 125 mcg PO DAILY 02/24/21 06/20/21 [Vitamin D3] dicyclomine 20 mg PO QID 02/24/21 06/20/21 esomeprazole magnesium [Nexium] 20 mg PO BID 02/24/21 06/20/21 losartan-hydrochlorothiazide 1 tablet PO DAILY 02/24/21 06/20/21 multivitamin 1 tablet PO DAILY 02/24/21 06/20/21 Allergies Allergy/AdvReac Type Severity Reaction Status Date / Time EGG WHITE Allergy Intermediate HAY FEVER Uncoded 06/25/21 17:41 SYMPTOMS ACTAFED Allergy Unknown Other Uncoded 06/25/21 17:41 Review of Systems Review of Systems: All systems reviewed & are unremarkable except as noted in HPI and below Constitutional: Constitutional: Denies chills, Reports fever(s) and Denies weakness ENT: Denies nasal congestion and Denies sore throat Cardiovascular: Cardiovascular: Reports chest pain, Denies rapid heart rate and Denies radiating jaw, neck or arm pain Respiratory: Respiratory: Reports cough, Denies dyspnea and Denies wheezing Gastrointestinal: Gastrointestinal: Denies abdominal pain, Denies nausea and Denies vomiting Genitourinary: Genitourinary: Denies nocturia and Denies dysuria [facility] Past Medical History Medical History (Updated 06/25/21 @ 20:23 by Amish Gregg MD) Anxiety Gallbladder disorder GERD (gastroesophageal reflux disease) Hypertension PVC's (premature ventricular contractions) Surgical History Surgical History (Updated 06/25/21 @ 18:07 by Amish Gregg MD) H/O rhinoplasty History of cholecystectomy Family History Family History Mother Family history of thyroid disease Grandparent Family history of cardiovascular disease Family history of lung cancer Family history of malignant neoplasm of uterus Other Diabetes mellitus Family history of arthritis Family history of heart disease in male family member before age 55 Family history of malignant neoplasm Hypertension Social History Social History Smoking status: Never smoker Alcohol intake: never Alcohol use details: 1 year ago Substance use: never Substance use type: does not use Spiritual care concerns: No Exam Narrative: GENERAL: Well-appearing, well-nourished, and in no acute distress. HEAD: Normocephalic, atraumatic. CHEST: Clear to auscultation. No respiratory distress. HEART: Regular rate and rhythm. Normal peripheral pulses. ABDOMEN: Soft, nontender, nondistended. EXTREMITIES: Normal range of motion. No edema. SKIN: Warm, dry, no rash. NEURO: Alert and oriented x3. PSYCH: Normal mood and affect. Course Course Emergency Course: Patient informed of results. Discharge home. Continue home pain medication. Received Toradol here. Vital Signs Vital signs: Vital Signs Temperature 98.0 F 06/25/21 15:31 Pulse Rate 62 06/25/21 15:31 Respiratory Rate 16 06/25/21 15:31 Blood Pressure 145/102 H 06/25/21 15:31 Pulse Oximetry 100 06/25/21 15:31 Temperature 98.0 F 06/25/21 15:31 Pulse Rate 64 06/25/21 17:39 Respiratory Rate 16 06/25/21 17:39 Blood Pressure 145/84 H 06/25/21 17:39 Pulse Oximetry 100 06/25/21 17:39 MDM - SOB/Dyspnea Lab Data Result diagrams: 06/25/21 18:42 06/25/21 18:42 Labs: L
[2021-06-25 18:47] LABS: Basophils Percent Auto 0.3 % (0.2-1.2); Eosinophils Absolute Auto 0.2 K/mm3 (0-0.3); Eosinophils Percent Auto 2.4 % (0-4.4); Hematocrit 35.9 % (37.0-47.0); Hemoglobin 11.8 g/dL (12.0-15.0); Immature Granulocyte Absolute 0.02 K/mm3 (0.00-0.031); Immature Granulocyte Percent A 0.3 % (0-0.5); Lymphocytes Absolute Auto 2.94 K/mm3 (0.9-3.2); Lymphocytes Percent Auto 39.8 % (18.3-44.2); Mean Corpuscular HGB Conc 32.9 g/dl (32-36); Mean Corpuscular Hemoglobin 33.2 pg (26-34); Mean Corpuscular Volume 101.1 fl (80-100); Mean Platelet Volume 10.7 fl (7.4-10.4); Monocytes Absolute Auto 0.5 K/mm3 (0.1-0.6); Monocytes Percent Auto 6.8 % (2.6-8.5); Neutrophils Absolute Auto 3.7 K/mm3 (1.3-6.7); Neutrophils Percent Auto 50.4 % (45.5-73.1); Platelet Count Result 210 k/mm3 (150-375); Red Blood Count 3.55 M/mm3 (4.2-5.4); Red Cell Distribution Width 11.9 % (11.5-14.5); White Blood Count 7.4 K/mm3 (4.5-10.0)
[2021-06-25 18:59] LABS: Alanine Aminotransferase 25 U/L (4-35); Albumin Level 3.8 g/dL (3.5-5.1); Alkaline Phosphatase 79 U/L (38-126); Anion Gap 4 mmol/L (8-16); Aspartate Amino Transferase 33 U/L (14-36); Bilirubin,Total 0.5 mg/dL (0.2-1.3); Blood Urea Nitrogen 5 mg/dL (7-17); Calcium 8.8 mg/dL (8.4-10.2); Carbon Dioxide 29 mmol/L (22-30); Chloride 108 mmol/L (98-107); Estimated CRCL calculation 86 ml/min; Estimated Glomerular Filt Rate > 60; Glucose 94 mg/dL (65-110); Lipase 87 U/L (23-300); Potassium 3.8 mmol/L (3.4-5.0); Sodium 141 mmol/L (137-145)
[2021-06-25 19:02] LABS: INR 1.1; Prothrombin Time 13.7 Seconds (11.1-14.7)
[2021-06-25 19:03] LABS: Partial Thromboplastin Time 31.1 SECONDS (22.3-36.8)
[2021-06-25] MEDS: KETOROLAC 30 MG/ML VIAL (*BKC) IV PUSH (20:16)
== END 2021-06-25 20:45 | disposition home or self-care (01) ==
PROVIDERS: Emergency Provider Emergency Medicine; PCP Surgery
DX: R07.89 Other chest pain (principal); I10 Essential (primary) hypertension; K21.9 Gastro-esophageal reflux disease without esophagitis; R00.1 Bradycardia, unspecified; R94.31 Abnormal electrocardiogram [ECG] [EKG]; J90 Pleural effusion, not elsewhere classified
CPT/HCPCS: 36415; 71275; 80053; 83690; 85025; 85610; 85730; 93005; 96374; 99284; J1885; Q9967

== ENCOUNTER 2022-08-12 15:49 | Outpatient (CLI) | payer OTHER, SELFPAY ==
--- NOTE | 2022-08-12 16:04 | ECG_ITS ---
Measurements Intervals [place] Rate: 91 P: 61 [place]: 155 QRS: -15 QRSD: 87 T: 44 QT: 335 QTc: 413 Interpretive Statements SINUS RHYTHM COMPARED TO ECG 06/25/2021 15:41:03 THE BRADYCARDIA HAS RESOLVED Electronically Signed On 08-13-2022 8:58:13 CDT by Anastasiia Berry M.D.
== END 2022-08-12 15:50 | disposition home or self-care (01) ==
PROVIDERS: PCP Family Medicine; Visit Provider Nurse Practitioner
DX: R00.1 Bradycardia, unspecified (principal)
CPT/HCPCS: 93005

== ENCOUNTER 2022-09-01 14:41 | Outpatient (CLI) | payer OTHER, SELFPAY ==
--- NOTE | ~2022-09-01 | CT_ITS ---
EXAMINATION: CT abdomen pelvis wo con DATE: 09/01/2022 15:08 INDICATION: Abdominal pain TECHNIQUE: Computed tomography (CT) of the abdomen and pelvis was performed without intravenous contr ast. The dose-length product (DLP) was 1461.34 mGy-cm. Automated exposure control and iterative recon struction technique were employed. COMPARISON: 06/20/2021 FINDINGS: The lung bases are clear. The heart size is normal. There are changes of cholecystectomy. T he liver, spleen, pancreas, and adrenal glands are normal. The kidneys are unremarkable. No stones ar e identified in the kidneys, ureters, or bladder. No hydronephrosis or hydroureter. No pathologically enlarged abdominal or pelvic lymph nodes are identified. No free intraperitoneal gas or evidence of bowel obstruction. The appendix is normal. Cysts of the ovaries measure 4.8 cm on the right and 3.6 c m on the left. IMPRESSION: 1. No CT correlate for the patient's symptoms. Reviewed, dictated and finalized at location L.
== END 2022-09-01 14:42 | disposition home or self-care (01) ==
PROVIDERS: PCP Family Medicine; Visit Provider Family Medicine
DX: N20.0 Calculus of kidney (principal); N39.0 Urinary tract infection, site not specified
CPT/HCPCS: 74176